=== PATIENT | male | born 1980 | race Caucasian/White ===

== ENCOUNTER 2019-07-28 20:00 | Emergency (ER) | payer OTHER, SELFPAY ==
[2019-07-28 20:01] VITALS: BP 152/93; PULSE 88; RESP 15; TEMP 36.7; O2SAT 98; BMI 27.9
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
--- NOTE | 2019-07-28 21:33 | DCINST.ED_ITS ---
ED Disposition - Plan for ED Patient: Instructions: Elbow Fracture [facility] [GROUP OF PHYSICIANS] -
--- NOTE | 2019-07-28 21:33 | ED.DEP ---
ED Disposition - Plan for ED Patient: Instructions: Elbow Fracture [facility] [GROUP OF PHYSICIANS] -
[2019-07-28 21:40] VITALS: RESP 18
== END 2019-07-28 21:41 | disposition home or self-care (01) ==
LOC: ED 20:34
PROVIDERS: Emergency Provider Emergency Medicine
DX: S43.401A Unspecified sprain of right shoulder joint, initial encounter (principal); S50.11XA Contusion of right forearm, initial encounter; S52.021A Displaced fracture of olecranon process without intraarticular extension of right ulna, initial encounter for closed fracture; K21.9 Gastro-esophageal reflux disease without esophagitis; X58.XXXA Exposure to other specified factors, initial encounter
CPT/HCPCS: 73030; 73090; 99282